=== PATIENT | male | born 1985 | race Caucasian/White ===

== ENCOUNTER 2025-06-22 06:17 | Day surgery (SDC) | payer OTHER ==
[2025-03-25 15:38] VITALS: BMI 53.3
[2025-06-22] MEDS ORDERED: Lidocaine 1% w/Epinephrine 1:200K 30 ML VIAL ONE (07:07)
[2025-06-22] MEDS ORDERED: Bacitracin 1 PK ONE (07:07)
[2025-06-22] MEDS ORDERED: AFRIN NASAL MIST 15 ML BOT ONE (08:18)
[2025-06-22] MEDS ORDERED: PROPOFOL 20 ML ONE (08:28)
[2025-06-22] MEDS ORDERED: Rocuronium Bromide 10 MG/ML (10ML VIAL) ONE (08:28)
[2025-06-22] MEDS ORDERED: Oxymetazoline HCl 0.05% (15 ML) ONE (09:09)
[2025-06-22] MEDS ORDERED: SUGAMMADEX SODIUM 200 MG/2 ML VIAL ONE (09:12)
[2025-06-22] MEDS ORDERED: Ketorolac Tromethamine 30 MG (1 mL) VIAL ONE (10:49)
== END 2025-06-22 12:00 | disposition home or self-care (01) ==
LOC: CSHSDC 06:17
PROVIDERS: ATTEND Otolaryngology Plastic Surgery within the Head & Neck
DX: J34.2 Deviated nasal septum (principal); J34.3 Hypertrophy of nasal turbinates; J32.0 Chronic maxillary sinusitis; J32.1 Chronic frontal sinusitis; J32.2 Chronic ethmoidal sinusitis; J34.89 Other specified disorders of nose and nasal sinuses
CPT/HCPCS: J1010; J1100; J1885; J2704; J3010